=== PATIENT | male | born 1995 | race Two or more races ===

== ENCOUNTER 2019-07-16 17:53 | Emergency (ER) | payer OTHER ==
[~2019-07-16] VITALS: Ht 165.1 cm; Wt 91.2 kg
[2019-07-16 20:06] VITALS: BP 111/64
[2019-07-16] MEDS ORDERED: KETOROLAC TROMETH 60MG/2ML VIAL IM ONE (20:15)
[2019-07-16] MEDS ORDERED: ONDANSETRON ODT 4 MG TAB PO ONE (20:30)
== END 2019-07-16 21:46 | disposition home or self-care (01) ==
LOC: ER 18:04
DX: S33.5XXA Sprain of ligaments of lumbar spine, initial encounter (principal); X50.9XXA Other and unspecified overexertion or strenuous movements or postures, initial encounter; Y93.89 Activity, other specified; Y99.8 Other external cause status; Y92.89 Other specified places as the place of occurrence of the external cause
CPT/HCPCS: 72100; 96372; 99283; J1885; Q0162

== ENCOUNTER 2019-10-11 13:12 | Emergency (ER) | payer OTHER ==
[~2019-10-11] VITALS: Ht 165.1 cm; Wt 92.5 kg
[2019-10-11 14:03] VITALS: BP 125/73
[2019-10-11] MEDS ORDERED: methylPREDNISolone SOD SUCC 125 MG/2 ML VL IM ONE (14:45)
[2019-10-11] MEDS ORDERED: KETOROLAC TROMETH 60MG/2ML VIAL IM ONE (14:45)
== END 2019-10-11 15:34 | disposition home or self-care (01) ==
LOC: ER 13:12
DX: M54.41 Lumbago with sciatica, right side (principal)
CPT/HCPCS: 96372; 99284; J1885; J2930

== ENCOUNTER 2019-12-19 18:28 | Emergency (ER) | payer OTHER ==
[~2019-12-19] VITALS: Ht 165.1 cm; Wt 90.7 kg
[2019-12-19 19:28] VITALS: BP 122/52
[2019-12-19] MEDS ORDERED: methylPREDNISolone SOD SUCC 125 MG/2 ML VL IM ONE (22:15)
[2019-12-19] MEDS ORDERED: KETOROLAC TROMETH 60MG/2ML VIAL IM ONE (22:15)
== END 2019-12-20 00:07 | disposition home or self-care (01) ==
LOC: ER 18:28
DX: M54.41 Lumbago with sciatica, right side (principal)
CPT/HCPCS: 96372; 99284; J1885; J2930

== ENCOUNTER → 2020-01-10 | Outpatient (CLI) | payer OTHER | END | disposition home or self-care (01) | LOC: Rad HDHVI 10:18 | PROVIDERS: ATTEND Internal Medicine Cardiovascular Disease | DX: M40.46 Postural lordosis, lumbar region (principal); M51.26 Other intervertebral disc displacement, lumbar region | CPT/HCPCS: 72131 ==